=== PATIENT | male | born 1950 | race Caucasian/White ===

== ENCOUNTER 2017-06-28 22:02 | Emergency (ER) | payer MEDICARE, BC, OTHER ==
[2017-06-28 22:36] LABS: BASOPHILS 0.4 % (0-2); EOSINOPHILS 3.2 % (0-7); HEMATOCRIT 40.9 % (42.0-54.0); HEMOGLOBIN 14.1 g/dL (13.5-17.5); IMMATURE GRANULOCYTES 0.4 % (0-5); LYMPHOCYTES 32.4 % (15-50); MCH 31.4 pg (26.0-34.0); MCHC 34.5 g/dL (31.0-37.0); MCV 91.1 fL (80.0-100.0); MEAN PLATELET VOLUME 9.9 fL (7.4-10.4); MONOCYTES 8.8 % (2-11); NEUTROPHILS 54.8 % (40-80); PLATELET COUNT 250 10x3/uL (130-400); RBC 4.49 10x6/uL (4.20-6.10); RDW 12.7 % (11.5-14.5); WBC 11.2 10x3/uL (4.8-10.8)
[2017-06-28 23:00] LABS: ALBUMIN 3.6 g/dL (3.4-5.0); ALKALINE PHOSPHATASE 66 U/L (46-116); ALT (SGPT) 23 U/L (10-68); BILIRUBIN - TOTAL 0.23 mg/dL (0.2-1.3); CALC OSMOLALITY 277 mosm/kg (275-300); CALCIUM 8.5 mg/dL (8.5-10.1); CARBON DIOXIDE 25.5 mmol/L (21.0-32.0); CHLORIDE - SERUM 102 mmol/L (98-107); CKMB 1.5 U/L (0.0-3.6); CREATINE KINASE 81 UL (21-232); CREATININE - SERUM 0.8 mg/dL (0.6-1.3); GLUCOSE 109 mg/dL (74-106); POTASSIUM - SERUM 3.6 mmol/L (3.5-5.1); PROTEIN - SERUM 7.5 g/dL (6.4-8.2); SODIUM 138 mmol/L (136-145); UREA NITROGEN 14 mg/dL (7-18); eGFR NON AFRICAN AMERICAN > 90 mL/min (90-120)
[2017-06-28 23:02] LABS: TROPONIN-I < 0.017 ng/mL (0.000-0.060)
[2017-08-05 07:46] VITALS: BMI 35.2
== END 2017-06-28 23:42 | disposition home or self-care (01) ==
LOC: D.ER 22:02
PROVIDERS: Family Medicine
DX: R07.9 Chest pain, unspecified (principal); I10 Essential (primary) hypertension; F17.200 Nicotine dependence, unspecified, uncomplicated

== ENCOUNTER 2017-07-26 11:17 | Outpatient (CLI) | payer MEDICARE, BC, OTHER ==
[~2017-07-26] VITALS: Ht 177.8 cm; Wt 111.4 kg
--- NOTE | ~2017-07-26 | HEMODYNAMI ---
PATIENT:JACOB THOMAS MEDICAL RECORD: [id number] : 46 [facility] DATE: 07/26/17 Generatedon:07/26/201713:51 Patient name: JACOB THOMAS Patient #: [id number] SSN: : 1950 Date of study: 07/26/2017 Page: Of Hemodynamic Procedure Report Patient Data Patient Demographics Procedure consent was obtained First Name: JACOB Gender: Male Last Name: WILLIAM : 1950 Middle Initial: W Age: 66 year(s) Patient #: [id number] Race: Unknown Additional ID: [id number] Contact details [address]: [address] [place] [address] State: [place] City: [place] Zip code: [address] Past Medical History Allergies: No known allergies Admission Admission Data Admission Date: 07/26/2017 Admission Time: 11:17 Lab Results Lab Result Date: 07/26/2017 Lab Result Time: 11:51 Biochemistry Name Units Result Min Max BUN mg/dl 13 --(--*-)-- 7 18 Creatinine mg/dl 0.8 --(-*--)-- 0.6 1.3 CBC Name Units Result Min Max Hematocrit % 42.1 --(*---)-- 42 54 Hemoglobin g/dl 14.5 --(*---)-- 13.5 17.5 Procedure Procedure Types Cath Procedure Diagnostic Procedure [facility] w/Coronaries Sedation Charges Moderate Sedation up to 15 minutes PCI Procedure Coronary Stent Coronary Stent Initial Procedure Description Procedure Date Procedure Date: 07/26/2017 Procedure Start Time: 13:16 Procedure End Time: 13:45 Procedure Staff Name Function Renard Mobley MD Performing Physician Feliciano Rooney RT Monitor Dena Orr RT Scrub Howard Beard RN Nurse Procedure Data Cath Procedure Fluoroscopy Diagnostic fluoroscopy Total fluoroscopy Time: 6.6 time: 6.6 min min Diagnostic fluoroscopy Total fluoroscopy dose: dose: 1212 mGy 1212 mGy Contrast Material Contrast Material Type Amount (ml) Isovue 300 115 Entry Location Entry Primary Successful Side Size Upsize Upsize Entry Closure Garcia ccessful Closure Location (Fr) 1 (Fr) 2 (Fr) Remarks Device Remarks Radial Right 6 Fr 6 Fr Mechanical artery Short Short Compression Estimated blood loss: 10 ml Diagnostic catheters Device Type Used For End Catheter Placement DIAGNOSTIC Esa 110cm Procedure 5Fr catheter ([id number]) Procedure Complications No complications Procedure Medications Medication Administration Route Dosage Oxygen NC 2 l/min Lidocaine 2% added to field 20 Heparin Flush Bag added to field 2 bags (1000units/500ml NS) 0.9% NaCl I.V. 100 ml/hr Versed I.V. 1 mg Fentanyl I.V. 50 mcg Radial Cocktail I.A. 1 syringe (Verapomil 2mg/Nitro 400mcg/Heparin 1500units) Versed I.V. 1 mg Fentanyl I.V. 50 mcg Versed I.V. 1 mg Heparin Bolus I.V. 98858 units Versed I.V. 1 mg Nitroglycerin IC/IA I.C. 100 mcg Plavix P.O. 600 mg Hemodynamics Rest HGB: 14.5 (g/dl) Heart Rate: 54 (bpm) Pressure Samples Time Site Value (mmHg) Purpose Heart Use Rate(bpm) 13:19 LV 132/4,17 Snapshot 72 13:20 AO 109/63(82) Pullback 63 13:20 LV 127/4,17 Pullback 63 Gradients Valve Time Site 1 Site 2 Mean SEP/DFP Peak To Heart Use (mmHg) (sec/min) Peak Rate (mmHg) (bpm) Aortic 13:20 LV AO 15 7 18 63 127/4,17 109/63(82) Calculations Valve P-P Mean Valve Index Valve Source Name Gradient Area Flow (cm2) Aortic 18 15 18 15 Snapshots Pre Cath Intra NCS Post Cath Vital Signs Time Heart Resp SPO2 etCO2 NIBP (mmHg) Rhythm Pain Sedation Rate (ipm) (%) (mmHg) Status Level (bpm) 13:08:42 54 17 97 36.9 147/78(122) NSR 0 (11) 10(A) , No pain 13:13:30 62 19 99 39.9 146/77(105) NSR 0 (11) 10(A) , No pain 13:18:11 64 18 97 33.9 103/54(87) NSR 0 (11) 9(A) , No pain 13:22:52 55 18 96 32.4 117/69(100) NSR 0 (11) 9(A) , No pain 13:27:32 55 17 95 30.8 110/63(95) NSR 0 (11) 9(A) , No pain 13:32:15 53 16 98 23.3 120/68(85) NSR 0 (11) 9(A) , No pain 13:36:58 58 15 98 34.6 127/69(116) NSR 0 (11) 9(A) , No pain 13:41:40 57 15 100 20.3 114/67(93) NSR 0 (11) 9(A) , No pain 13:46:25 54 12 99 33.1 125/64(108) NSR 0 (11) 10(A) , No pain Medications Time Medication Route Dose Verified Delivered Reason Note s Effectiveness by by 13:11:52 Oxygen NC 2 l/min Renard Buffie used for Itz Beard RN procedure 13:12:01 Lidocaine 2% added 20ml Renard Renard for local to vial Itz Mobley MD anesthetic field 13:12:07 Heparin Flush added 2 bags Renard Renard used for Bag to Itz Mobley MD procedure (1000units/500ml field NS) 13:12:17 0.9% NaCl I.V. 100 Renard Buffie Per physician ml/hr Itz Beard RN 13:12:32 Versed I.V. 1 mg Renard Buffie for sedation Itz Beard RN 13:12:37 Fentanyl I.V. 50 mcg Renard Buffie for sedation Itz Beard RN 13:16:50 Radial Cocktail I.A. 1 Renard Renard for (Verapomil syringe Itz Mobley MD vasodilation 2mg/Nitro 400mcg/Heparin 1500units) 13:16:55 Versed I.V. 1 mg Renard Buffie for sedation Itz Beard RN 13:17:01 Fentanyl I.V. 50 mcg Renard Buffie for sedation Itz Beard RN 13:22:20 Versed I.V. 1 mg Renard Buffie for sedation Itz Beard RN 13:32:32 Heparin Bolus I.V. 11,000 Renard Buffie for veri fied units Itz Beard RN anticoagulation with dr mobley. 13:37:57 Versed I.V. 1 mg Renard Jarodie for sedation Itz Beard RN 13:40:09 Nitroglycerin I.C. 100 mcg Renard Renard for IC/IA Itz min 13:45:04 Plavix P.O. 600 mg Renard Jarodie for Itz Beard RN antiplatelet therapy Procedure Log Time Note 12:51:49 Dena Orr RT(R) sent for patient. Start room use. 12:51:50 Time tracking: Regular hours (M-F 7:00 - 5:00) 12:51:55 Plan of Care:Hemodynamics will remain stable., Cardiac rhythm will remain stable., Comfort level will be maintained., Respiratory function will remain adequate., Patient/ family verbilizes understanding of procedure., Procedure tolerated without complication., Recovers from procedure without complications.. 13:07:33 Patient received from Pre/Post Procedure Room to CCL 1 Alert and oriented. Tansferred to table in Supine position. 13:07:34 Warm blankets applied, and praveen hugger turned on for patient comfort. 13:07:34 Correct patient and procedure confirmed by team. 13:07:36 Signed procedure consent form obtained from patient. 13:07:41 ECG and BP/O2 sat monitors applied to patient. 13:07:42 Vital chart was started 13:08:01 H&P Date Dictated: 07/06/2017 Within 30 days and on chart., H&P Addendum completed by physician on day of procedure. (MUST COMPLETE FOR ALL OUTPATIENTS). 13:08:03 Pre-procedure instructions explained to patient. 13:08:03 Pre-op teaching completed and patient verbalized understanding. 13:08:05 Family in waiting room. 13:08:06 Patient NPO since Midnight. 13:08:10 Patient allergic to No known allergies 13:08:12 Is the patient allergic to Iodine/contrast media? No. 13:08:15 Is patient on blood thinner?No 13:08:17 Patient diabetic? No. 13:08:19 Previous problem with sedation/anesthesia? No ? 13:08:21 Snore? No 13:08:22 Sleep apnea? No 13:08:23 Deviated septum? No 13:08:23 Opens mouth fully? Yes 13:08:24 Sticks out tongue? Yes 13:08:25 Airway obstruction? No ? 13:08:28 Dentures? No ? 13:08:33 Modified Abdi's test Ulnar < 7 seconds 13:08:34 Patient pain scale 0/10 ?. 13:08:45 IV patent on arrival in left forearm with 0.9% NaCl at [facility]. 13:10:13 Lab Result : BUN 13 mg/dl 13:10:13 Lab Result : Creatinine 0.8 mg/dl 13:10:13 Lab Result : Hematocrit 42.1 % 13:10:13 Lab Result : Hemoglobin 14.5 g/dl 13:10:18 Lab results completed and on chart. 13:10:31 Right Radial & Right Groin area was prepped with chlora-prep and draped in sterile fashion 13:10:32 Alarms reviewed by R. N. 13:10:32 Sharps counted by scrub and verified by R.N. 13:10:35 Use device set Radial Dx or PCI 13:10:36 ACIST Syringe (43420) opened to sterile field. 13:10:36 Medline Cath Pack ([id number]) opened to sterile field. 13:10:37 Bag Decanter (2002S) opened to sterile field. 13:10:38 ACIST Hand Control (19115) opened to sterile field. 13:10:38 ACIST Manifold (05738) opened to sterile field. 13:10:39 Tegaderm 4 x 4 (1626W) opened to sterile field. 13:10:41 MBrace Wrist Support ([id number]) opened to sterile field. 13:10:43 DIAGNOSTIC WIRE .035 260cm J wire (602614) opened to sterile field. 13:10:44 SHEATH 6Fr Prelude Radial ([id number]) opened to sterile field. 13:10:48 Physician arrived 13:10:48 --------ALL STOP TIME OUT------ 13:10:49 Final Timeout: patient, procedure, and site verified with staff and physician. All members of the team are in agreement. 13:10:50 Right Radial & Right Groin site verified by team. 13:10:52 Physical assessment completed. ASA score P 2 - A patient with mild systemic disease as per Renard Mobley MD. 13:10:55 Sedation plan: IV Moderate Sedation Medication:Versed, Fentanyl 13:11:45 Baseline sample Acquired. 13:11:48 Rhythm: sinus rhythm 13:11:49 Full Disclosure recording started 13:11:52 Oxygen 2 l/min NC was administered by Howard Beard RN; used for procedure; 13:12:01 Lidocaine 2% 20ml vial added to field was administered by Renard Mobley MD; for local anesthetic; 13:12:07 Heparin Flush Bag (1000units/500ml NS) 2 bags added to field was administered by Renard Mobley MD; used for procedure; 13:12:17 0.9% NaCl 100 ml/hr I.V. was administered by Howard Beard RN; Per physician; 13:12:32 Versed 1 mg I.V. was administered by Howard Beard RN; for sedation; 13:12:37 Fentanyl 50 mcg I.V. was administered by Howard Beard RN; for sedation; 13:16:47 Procedure started. 13:16:50 Radial Cocktail (Verapomil 2mg/Nitro 400mcg/Heparin 1500units) 1 syringe I.A. was administered by Renard Mobley MD; for vasodilation; 13:16:53 Local anesthetic to right radial artery with Lidocaine 2% by Renard Mobley MD.INITIAL ACCESS ONLY 13:16:55 Versed 1 mg I.V. was administered by Howard Beard RN; for sedation; 13:17:00 A 6 Fr Short sheath was inserted into the Right Radial artery 13:17:01 Fentanyl 50 mcg I.V. was administered by Howard Beard RN; for sedation; 13:18:30 A DIAGNOSTIC Esa 110cm 5Fr catheter ([id number]) was advanced over the wire and used for Procedure. 13:19:43 LV gram done using MCMAHON 13:19:45 Injector settings: Ml/sec: 5, Volume: 15, 13:19:48 LV hemodynamics recorded. 13:19:57 EF : 55 % 13:21:12 LCA angiography performed. 13:22:20 Versed 1 mg I.V. was administered by Howard Beard RN; for sedation; 13:23:25 RCA angiography performed. 13:28:44 Catheter removed. 13:28:54 INFLATOR Merit BasixCompak (JJ5299) opened to sterile field. 13:28:55 BMW 300cm [place] 2 J wire ([id number]) opened to sterile field. 13:29:05 TUBING High Pressure Extension Tubing (Itz) (XH9025U) opened to sterile field. 13:29:16 GUIDE 6FR XBLAD 3.5 catheter (19942776) opened to sterile field. 13:29:26 6 Fr xblad 3.5 guide catheter was inserted over the wire 13:32:32 Heparin Bolus 11,000 units I.V. was administered by Howard Beard RN; for anticoagulation; verified with dr mobley. 13:32:51 bmw wire advanced. 13:36:08 Wire advanced across lesion. 13:37:27 Place stent Inflation Number: 1 A INTEGRITY OTW 2.5 X 12 stent ([id number]) was prepped and advanced across the Dist LAD. The stent was deployed at 12 ISA for 0:10 (min:sec). 13:37:57 Versed 1 mg I.V. was administered by Howard Beard RN; for sedation; 13:40:09 Nitroglycerin IC/IA 100 mcg I.C. was administered by Renard Mobley MD; for vasodilation; 13:42:10 Stent catheter was removed intact over wire. 13:42:25 Wire removed. 13:42:26 Guide catheter removed. 13:42:32 TR BAND Standard ([id number]) opened to sterile field. 13:43:00 Sheath removed intact; hemostasis achieved with Mechanical Compression to the Right Radial artery. 13:43:21 Procedure ended.(Physican Out) 13:44:00 TR band inflated with 12cc of air. 13:44:02 Fluoroscopy time 06.60 minutes. 13:44:06 Fluoroscopy dose: 1212 mGy 13:44:06 Flurop Dose total: 1212 13:44:10 Contrast amount:Isovue 300 115ml. 13:44:12 Sharps counted by scrub and verified by R.N. 13:44:13 Insertion/operative site no bleeding no hematoma. 13:44:18 Post right femoral artery:stable, soft, clean and dry 13:44:20 Post Procedure Pulses reassessed and unchanged 13:44:22 Post-procedure physical assessment completed. ASA score P 2 - A patient with mild systemic disease as per Renard Mobley MD. 13:44:24 Post procedure rhythm: unchanged. 13:44:26 Estimated blood loss: 10 ml 13:44:27 Post procedure instruction explained to patient.Patient verbalizes understanding. 13:44:28 Patient needs reinforcement of post procedure teaching. 13:44:33 Procedure type changed to Cath procedure, Diagnostic procedure, LHC, LHC w/Coronaries, Sedation Charges, Moderate Sedation up to 15 minutes, PCI procedure, Coronary Stent, Coronary Stent Initial 13:45:04 Plavix 600 mg P.O. was administered by Howard Beard RN; for antiplatelet therapy; 13:45:46 Procedure and supply charges have been captured, reviewed, submitted and are correct. 13:45:48 Procedure Complication : No complications 13:45:50 Vital chart was stopped 13:45:51 See physician's report for complete and final results. 13:45:52 Report given to Pre/Post Procedure Room. 13:45:54 Patient transfered to Pre/Post Procedure Room with Stretcher. 13:45:56 Procedure ended. 13:45:56 Full Disclosure recording stopped 13:46:04 End room use (Document Last) Intervention Summary Intervention Notes Time ActionType Lesion and Equipment Action# Pressure Duration Attributes Used 13:37:27 Place stent Dist LAD INTEGRITY 1 12 00:10 OTW 2.5 X 12 stent ([id number]) Device Usage Item Name Manufacture Quantity Catalog Number Hospital Part Current M inimal Lot# / Charge Number Stock Stock Serial# Code ACIST Syringe Acist 1 53286 231593 950114 316825 2 0 (93060) Medical Systems Inc Medline Cath Cardinal 1 [id number] 944224 12160 402050 5 Pack Health ([id number]) Bag Decanter Microtek 1 177568 11112 395619 5 () Medical Inc. ACIST Hand Acist 1 81611 037215 763952 308435 5 Control (83703) Medical Systems Inc ACIST Manifold Acist 1 81988 565649 932300 971754 5 (51059) Medical Systems Inc Tegaderm 4 x 4 3M 1 1626W 259732 890240 099008 5 (1626W) MBrace Wrist Advanced 1 140-0250-00 158356 22264 593063 5 Support Vascular ([id number]) Dynamics DIAGNOSTIC WIRE [place] 1 201448 262454 761843 894658 3 0 .035 260cm J wire (633330) SHEATH 6Fr Merit 1 [id number] 968981 696049 375902 5 Prelude Radial Medical ([id number]) DIAGNOSTIC Terumo 1 40-5135 527019 372008 403451 5 Esa 110cm 5Fr catheter (864886) INFLATOR Merit Merit 1 ZN7238 710787 093183 770368 1 5 BasixComazk Medical (WC0035) BMW 300cm [place] 1 [id number] 698983 826486 238011 5 [place] 2 J Vascular wire (9076287U) TUBING High Merit 1 [id number] 142003 59658 519178 1 0 Pressure Medical Extension Tubing (Mobley) ([id number]) GUIDE 6FR XBLAD Cardinal 1 [id number] 264421 164879 931701 1 0 3.5 catheter Health (55318996) INTEGRITY OTW Medtronic 1 [id number] 918917 682798 3 [id number] 2.5 X 12 stent ([id number]) TR BAND Terumo 1 [id number] 110008 948963 432436 4 0 Standard ([id number]) Signature Audit [place] Stage Time Signature Unsigned Intra-Procedure 07/26/2017 Feliciano Rooney 1:51:35 PM RT(R) Signatures Monitor : Feliciano Rooney RT Signature : Date : Time : [id number] [place] [address]
[2017-07-26] MEDS ORDERED: TENORMIN50 MG PO (11:45)
[2017-07-26] MEDS ORDERED: PEPCID20 MG PO (11:46)
[2017-07-26] MEDS ORDERED: HYDROCODON-ACET15 ML PO (11:47)
[2017-07-26] MEDS ORDERED: ZOCOR80 MG PO (11:48)
[2017-07-26 11:54] LABS: BASOPHILS 0.4 % (0-2); EOSINOPHILS 2.2 % (0-7); HEMATOCRIT 42.1 % (42.0-54.0); HEMOGLOBIN 14.5 g/dL (13.5-17.5); IMMATURE GRANULOCYTES 0.2 % (0-5); MCH 31.5 pg (26.0-34.0); MCHC 34.4 g/dL (31.0-37.0); MCV 91.3 fL (80.0-100.0); MEAN PLATELET VOLUME 9.9 fL (7.4-10.4); MONOCYTES 6.7 % (2-11); NEUTROPHILS 56.5 % (40-80); PLATELET COUNT 240 10x3/uL (130-400); RBC 4.61 10x6/uL (4.20-6.10); RDW 12.8 % (11.5-14.5); WBC 9.7 10x3/uL (4.8-10.8)
[2017-07-26 12:05] LABS: CALC OSMOLALITY 275 mosm/kg (275-300); CARBON DIOXIDE 24.8 mmol/L (21.0-32.0); CHLORIDE - SERUM 102 mmol/L (98-107); CREATININE - SERUM 0.8 mg/dL (0.6-1.3); GLUCOSE 93 mg/dL (74-106); POTASSIUM - SERUM 4.2 mmol/L (3.5-5.1); SODIUM 138 mmol/L (136-145); UREA NITROGEN 13 mg/dL (7-18); eGFR NON AFRICAN AMERICAN > 90 mL/min (90-120)
[2017-07-26 12:08] VITALS: BP 138/75; Ht 177.8 cm; Wt 111.4 kg
[2017-07-26] MEDS ORDERED: BAYER CHEWABLE81 MG PO (13:58)
[2017-07-26] MEDS ORDERED: PLAVIX75 MG PO (13:58)
== END 2017-07-26 18:25 | disposition home or self-care (01) ==
LOC: D.CATH 11:17
PROVIDERS: Internal Medicine Cardiovascular Disease
DX: I20.9 Angina pectoris, unspecified (principal); R94.30 Abnormal result of cardiovascular function study, unspecified; R07.9 Chest pain, unspecified; I10 Essential (primary) hypertension; Z01.812 Encounter for preprocedural laboratory examination

== ENCOUNTER 2017-08-05 06:59 | Outpatient (CLI) | payer MEDICARE, BC, OTHER ==
[~2017-08-05] VITALS: Ht 177.8 cm; Wt 111.4 kg
--- NOTE | ~2017-08-05 | HEMODYNAMI ---
PATIENT:JACOB THOMAS MEDICAL RECORD: [id number] : 46 LOCATION:[facility] ADMISSION DATE: 08/05/17 Generatedon:08/05/201710:04 Patient name: JACOB THOMAS Patient #: [id number] : 1950 Date of study: 08/05/2017 Page: Of Hemodynamic Procedure Report Patient Data Patient Demographics Procedure consent was obtained First Name: JACOB Gender: Male Last Name: WILLIAM : 1950 Middle Initial: W Age: 66 year(s) Patient #: [id number] Race: SSN: [id number] Additional ID: [id number] Contact details Address: [address] [place] [address] State: [place] City: [place] Zip code: [address] Past Medical History Allergies: No known allergies Admission Admission Data Admission Date: 08/05/2017 Admission Time: 6:59 Arrival Date: 08/05/2017 Arrival Time: 9:00 Admit Source: Other Insurance Payor: Medicare Height (in.): 70 BSA: 2.29 (m2) Height (cm.): 177.8 BMI: 35.87 (kg/m2) Weight (lbs.): 250 Weight (kg.): 113.4 Lab Results Lab Result Date: 08/05/2017 Lab Result Time: 0:00 Biochemistry Name Units Result Min Max BUN mg/dl 13 --(--*-)-- 7 18 Creatinine mg/dl 0.6 --(*---)-- 0.6 1.3 CBC Name Units Result Min Max Hemoglobin g/dl 14.4 --(*---)-- 13.5 17.5 Procedure Procedure Types Cath Procedure Diagnostic Procedure Sedation Charges Moderate Sedation up to 15 minutes PCI Procedure Coronary Stent Coronary Stent Initial Procedure Description Procedure Date Procedure Date: 08/05/2017 Procedure Start Time: 9:47 Procedure End Time: 10:01 Procedure Staff Name Function Renard Mobley MD Performing Physician Ana Laura CHANEY Monitor Flip Cronin RN Nurse Ana Laura Bernard RT Scrub Procedure Data Cath Procedure Fluoroscopy Diagnostic fluoroscopy Total fluoroscopy Time: 2.8 time: 2.8 min min Diagnostic fluoroscopy Total fluoroscopy dose: 618 dose: 618 mGy mGy Contrast Material Contrast Material Type Amount (ml) Isovue 300 36 Entry Location Entry Primary Successful Side Size Upsize Upsize Entry Closure Garcia ccessful Closure Location (Fr) 1 (Fr) 2 (Fr) Remarks Device Remarks Radial Right 6 Fr Mechanical artery Short Compression Estimated blood loss: 5 ml Procedure Complications No complications Procedure Medications Medication Administration Route Dosage Oxygen etCO2 Nasal cannula 2 l/min Heparin Flush Bag added to field 2 bags (1000units/500ml NS) 0.9% NaCl I.V. 100 ml/hr Radial Cocktail added to field 1 syringe (Verapomil 2mg/Nitro 400mcg/Heparin 1500units) Fentanyl I.V. 50 mcg Versed I.V. 1 mg Radial Cocktail I.A. 1 syringe (Verapomil 2mg/Nitro 400mcg/Heparin 1500units) Fentanyl I.V. 50 mcg Heparin Bolus I.V. 47532 units Hemodynamics Rest BSA: 2.29 (m2) HGB: 14.4 (g/dl) O2 Consumption: Estimated: 252.84 (ml/min) O2 Co nsumption indexed: Estimated:110.41 (ml/min/m) Heart Rate: 55 (bpm) Snapshots Pre Cath Intra NCS Post Cath Vital Signs Time Heart Resp SPO2 etCO2 NIBP (mmHg) Rhythm Pain Sedation Rate (ipm) (%) (mmHg) Status Level (bpm) 9:29:15 54 15 98 0 145/80(127) NSR 0 (11) 10(A) , No pain 9:33:29 53 16 100 35.3 138/78(118) NSR 0 (11) 10(A) , No pain 9:37:47 54 17 100 32.3 135/76(116) NSR 0 (11) 10(A) , No pain 9:43:58 52 17 100 34.5 134/78(116) NSR 0 (11) 10(A) , No pain 9:48:49 62 16 94 35.3 127/80(99) NSR 0 (11) 9(A) , No pain 9:53:01 60 17 89 41.3 108/67(91) NSR 0 (11) 9(A) , No pain 9:57:11 56 17 97 42.8 108/62(80) NSR 0 (11) 9(A) , No pain 10:01:21 51 18 100 41.3 111/62(83) NSR 0 (11) 9(A) , No pain Medications Time Medication Route Dose Verified Delivered Reason Note s Effectiveness by by 9:43:29 Oxygen etCO2 2 l/min Renard Flip Per physician Nasal Itz Cronin RN cannula 9:43:36 Heparin Flush added 2 bags Renard Flip used for Bag to Itz Cronin RN procedure (1000units/500ml field NS) 9:43:44 0.9% NaCl I.V. 100 Renard Flip Per physician ml/hr Itz Cronin RN 9:43:52 Radial Cocktail added 1 Renard Flip used for (Verapomil to syringe Itz Cronin RN procedure 2mg/Nitro field 400mcg/Heparin 1500units) 9:43:59 Fentanyl I.V. 50 mcg Renard Flip for sedation Itz Cronin RN 9:44:05 Versed I.V. 1 mg Renard Flip for sedation Itz Cronin RN 9:49:52 Radial Cocktail I.A. 1 Renard Renard for (Verapomil syringe Itz Mobley MD vasodilation 2mg/Nitro 400mcg/Heparin 1500units) 9:49:58 Fentanyl I.V. 50 mcg Renard Flip for sedation Itz Cronin RN 9:51:29 Heparin Bolus I.V. 35596 Renard Flip for units Itz Cronin RN anticoagulation Procedure Log Time Note 9:06:31 Diagnostic Cath Status : Elective 9:06:53 Ana Laura Bernard RT(R) sent for patient. Start room use. 9:06:54 Time tracking: Regular hours (M-F 7:00 - 5:00) 9:06:59 Plan of Care:Hemodynamics will remain stable., Cardiac rhythm will remain stable., Comfort level will be maintained., Respiratory function will remain adequate., Patient/ family verbilizes understanding of procedure., Procedure tolerated without complication., Recovers from procedure without complications.. 9:18:12 Patient received from Pre/Post Procedure Room to CCL 2 Alert and oriented. Tansferred to table in Supine position. 9:18:13 Warm blankets applied, and praveen hugger turned on for patient comfort. 9:18:14 Correct patient and procedure confirmed by team. 9:18:15 Signed procedure consent form obtained from patient. 9:18:16 ECG and BP/O2 sat monitors applied to patient. 9:28:11 Baseline sample Acquired. 9:28:11 Vital chart was started 9:28:14 Rhythm: sinus rhythm 9:28:17 Full Disclosure recording started 9:28:21 H&P Date Dictated: 08/05/2017 Within 30 days and on chart., H&P Addendum completed by physician on day of procedure. (MUST COMPLETE FOR ALL OUTPATIENTS). 9:28:22 Pre-procedure instructions explained to patient. 9:28:22 Pre-op teaching completed and patient verbalized understanding. 9:28:24 Family in patients room. 9:28:25 Patient NPO since Midnight. 9:28:27 Is the patient allergic to Iodine/contrast media? No. 9:28:28 Was the patient premedicated? No 9:28:29 Is patient on blood thinner?Yes 9:28:32 ACC The patient was administered the following blood thiners within the last 24 hours: ACCPlavix 9:28:34 Patient diabetic? No. 9:28:37 Previous problem with sedation/anesthesia? No ? 9:28:38 Snore? Yes 9:28:40 Sleep apnea? No 9:28:40 Deviated septum? No 9:28:41 Opens mouth fully? Yes 9:28:42 Sticks out tongue? Yes 9:28:44 Airway obstruction? No ? 9:28:46 Dentures? No ? 9:28:49 Pre procedure: right dorsailis pedis pulse 2+ Normal; easily identifiable; not easily obliterated 9:28:52 Pre procedure: left dorsailis pedis pulse 2+ Normal; easily identifiable; not easily obliterated 9:29:00 Patient pain scale 0/10 ?. 9:29:04 Modified Abdi's test Radial < 7 seconds 9:29:10 IV patent on arrival in left forearm with 0.9% NaCl at KVO. 9:29:13 Lab results completed and on chart. 9:29:16 Right Radial & Right Groin area was prepped with chlora-prep and draped in sterile fashion 9::17 Alarms reviewed by RPedro N. 9::17 Sharps counted by scrub and verified by RPedroN. 9:34:58 Physician arrived 9:34:58 --------ALL STOP TIME OUT------ ::58 Final Timeout: patient, procedure, and site verified with staff and physician. All members of the team are in agreement. 9:35:01 Right Radial & Right Groin site verified by team. 9:35:03 Physical assessment completed. ASA score P 2 - A patient with mild systemic disease as per Renard Mobley MD. 9:35:08 Sedation plan: IV Moderate Sedation Medication:Versed, Fentanyl 9:40:19 Admit Source: Other 9:40:23 Arrival Date: 08/05/2017 9:00:00 AM 9:40:31 Insurance Payor : Medicare 9:40:56 Patient Height : 70 inches 9:41:01 Patient Weight : 250 lbs 9:43:29 Oxygen 2 l/min etCO2 Nasal cannula was administered by Flip Cronin RN; Per physician; 9:43:36 Heparin Flush Bag (1000units/500ml NS) 2 bags added to field was administered by Flip Crnoin RN; used for procedure; 9:43:44 0.9% NaCl 100 ml/hr I.V. was administered by Flip Cronin RN; Per physician; 9:43:52 Radial Cocktail (Verapomil 2mg/Nitro 400mcg/Heparin 1500units) 1 syringe added to field was administered by Flip Cronin RN; used for procedure; 9:43:59 Fentanyl 50 mcg I.V. was administered by Flip Cronin RN; for sedation; 9:44:05 Versed 1 mg I.V. was administered by Flip Cronin RN; for sedation; 9:47:24 Lab Result : Hemoglobin 14.4 g/dl 9:47:24 Lab Result : Creatinine 0.6 mg/dl 9:47:24 Lab Result : BUN 13 mg/dl 9:47:30 Procedure started. 9:47:34 Local anesthetic to right radial artery with Lidocaine 2% by Renard Mobley MD.INITIAL ACCESS ONLY 9:47:43 A 6 Fr Short sheath was inserted into the Right Radial artery 9:49:52 Radial Cocktail (Verapomil 2mg/Nitro 400mcg/Heparin 1500units) 1 syringe I.A. was administered by Renard Mobley MD; for vasodilation; 9:49:58 Fentanyl 50 mcg I.V. was administered by Flip Cronin RN; for sedation; 9:50:19 6 Fr xblad 3.5 guide catheter was inserted over the wire 9:50:27 bmw wire advanced. 9:50:38 Use device set Radial Dx or PCI 9:50:40 ACIST Syringe (06781) opened to sterile field. 9:50:40 Medline Cath Pack ([id number]) opened to sterile field. 9:50:41 Bag Decanter (2002S) opened to sterile field. 9:50:41 DIAGNOSTIC WIRE .035 260cm J wire (716700) opened to sterile field. 9:50:42 ACIST Hand Control (79736) opened to sterile field. 9:50:43 ACIST Manifold (62134) opened to sterile field. 9:50:44 Tegaderm 4 x 4 (1626W) opened to sterile field. 9:50:44 MBrace Wrist Support ([id number]) opened to sterile field. 9:50:45 NEEDLE Cook 21G 4cm Radial (P74816) opened to sterile field. 9:50:47 SHEATH 6Fr Prelude Radial ([id number]) opened to sterile field. 9:51:01 TUBING High Pressure Extension Tubing (Itz) (XP0895E) opened to sterile field. 9:51:02 BMW 300cm [place] 2 J wire (2035029S) opened to sterile field. 9:51:03 INFLATOR Merit BasixCompak (VB8240) opened to sterile field. 9:51:18 GUIDE 6FR XBLAD 3.5 catheter (43794289) opened to sterile field. 9:51:29 Heparin Bolus 17228 units I.V. was administered by Flip Cronin RN; for anticoagulation; 9:52:41 LCA angiography performed. 9:52:44 Injector settings: Ml/sec: 3, Volume: 6, 9:53:44 Wire advanced across lesion. 9:56:34 Place stent Inflation Number: 1 A INTEGRITY OTW 3.0 X 12 stent ([id number]) was prepped and advanced across the Mid CX. The stent was deployed at 14 ISA for 0:10 (min:sec). 9:57:49 Stent catheter was removed intact over wire. 9:57:50 Wire removed. 9:57:50 Guide catheter removed. 9:58:20 Sheath removed intact; hemostasis achieved with Mechanical Compression to the Right Radial artery. 9:58:24 TR BAND Standard ([id number]) opened to sterile field. 9:58:28 Procedure ended.(Physican Out) 9:59:03 Fluoroscopy time 02.80 minutes. 9:59:08 Fluoroscopy dose: 618 mGy 9:59:08 Flurop Dose total: 618 9:59:12 Contrast amount:Isovue 300 36ml. 9:59:14 Sharps counted by scrub and verified by R.N. 9:59:17 TR band inflated with 10cc of air. 9:59:19 Insertion/operative site no bleeding no hematoma. 9:59:22 Post right radial artery:stable 9:59:24 Post Procedure Pulses reassessed and unchanged 9:59:26 Post procedure rhythm: unchanged. 9:59:40 Estimated blood loss: 5 ml 9:59:42 Post procedure instruction explained to patient.Patient verbalizes understanding. 9:59:42 Patient needs reinforcement of post procedure teaching. 10:00:58 Procedure type changed to Cath procedure, Diagnostic procedure, Sedation Charges, Moderate Sedation up to 15 minutes, PCI procedure, Coronary Stent, Coronary Stent Initial 10:01:02 Procedure and supply charges have been captured, reviewed, submitted and are correct. 10:01:06 Procedure Complication : No complications 10:01:08 Vital chart was stopped 10:01:08 See physician's report for complete and final results. 10:01:12 Report given to Pre/Post Procedure Room. 10:01:14 Patient transfered to Pre/Post Procedure Room with Stretcher. 10::17 Procedure ended. ::17 Full Disclosure recording stopped 10::29 ACC-PCI Only Patient was given prescriptions, or instructed by Renard Mobley MD to start/continue the following medications upon discharge: Plavix 10:01:31 End room use (Document Last) Intervention Summary Intervention Notes Time ActionType Lesion and Equipment Action# Pressure Duration Attributes Used 9:56:34 Place stent Mid CX INTEGRITY 1 14 00:10 OTW 3.0 X 12 stent ([id number]) Device Usage Item Name Manufacture Quantity Catalog Number Hospital Part Current M inimal Lot# / Charge Number Stock Stock Serial# Code ACIST Syringe Acist 1 77858 278507 196361 195470 2 0 (09539) Medical Systems Inc Medline Cath Cardinal 1 [id number] 696267 85059 444540 5 Pack Health ([id number]) Bag Decanter Microtek 1 2001S 301171 60559 324573 5 () Medical Inc. DIAGNOSTIC WIRE [place] 1 937890 922785 127374 334275 3 0 .035 260cm J wire (487894) ACIST Hand Acist 1 89899 348366 566856 120051 5 Control (82976) Medical Systems Inc ACIST Manifold Acist 1 17218 063313 830552 766956 5 (11976) Medical Systems Inc Tegaderm 4 x 4 3M 1 1626W 729908 048750 336804 5 (1626W) MBrace Wrist Advanced 1 140-0250-00 093967 14953 308454 5 Support Vascular (275929499) Dynamics NEEDLE Cook 21G Cook Medical 1 J11597 030627 138926 704694 5 4cm Radial (Y80264) SHEATH 6Fr Merit 1 [id number] 602385 918773 599462 5 Prelude Radial Medical ([id number]) TUBING High Merit 1 [id number] 624267 58501 938146 1 0 Pressure Medical Extension Tubing (Mobley) (NQ2223G) BMW 300cm [place] 1 [id number] 993853 857949 036591 5 [place] 2 J Vascular wire (9966647A) INFLATOR Merit Merit 1 MK8905 670583 189547 638422 1 5 BasixFloored Medical (WA3148) GUIDE 6FR XBLAD Cardinal 1 [id number] 150090 021858 776230 1 0 3.5 catheter Health (64120481) INTEGRITY OTW Medtronic 1 [id number] 003395 471657 1 [id number] 3.0 X 12 stent ([id number]) TR BAND Terumo 1 [id number] 396487 255270 163426 4 0 Standard ([id number]) Signature Audit [place] Stage Time Signature Unsigned Intra-Procedure 08/05/2017 Ana Laura Bernard 10:04:05 AM RT(R) Signatures Monitor : Ana Laura Bernard RT Signature : Date : Time : [place] [id number] [place] [address]
[~2017-08-05 06:59] MED LIST: BAYER CHEWABLE81 MG PO; HYDROCODON-ACET15 ML PO; PEPCID20 MG PO; PLAVIX75 MG PO; TENORMIN50 MG PO; ZOCOR80 MG PO
[2017-08-05 07:46] VITALS: BP 131/69; Ht 177.8 cm; Wt 111.4 kg
[2017-08-05 08:30] LABS: BASOPHILS 0.5 % (0-2); EOSINOPHILS 2.8 % (0-7); HEMATOCRIT 42.1 % (42.0-54.0); HEMOGLOBIN 14.4 g/dL (13.5-17.5); IMMATURE GRANULOCYTES 0.2 % (0-5); LYMPHOCYTES 28.3 % (15-50); MCHC 34.2 g/dL (31.0-37.0); MCV 90.5 fL (80.0-100.0); MEAN PLATELET VOLUME 10.2 fL (7.4-10.4); MONOCYTES 8.8 % (2-11); NEUTROPHILS 59.4 % (40-80); PLATELET COUNT 253 10x3/uL (130-400); RBC 4.65 10x6/uL (4.20-6.10); RDW 12.8 % (11.5-14.5); WBC 9.3 10x3/uL (4.8-10.8)
[2017-08-05 08:43] LABS: CALC OSMOLALITY 273 mosm/kg (275-300); CALCIUM 9.1 mg/dL (8.5-10.1); CARBON DIOXIDE 24.2 mmol/L (21.0-32.0); CHLORIDE - SERUM 103 mmol/L (98-107); CREATININE - SERUM 0.6 mg/dL (0.6-1.3); GLUCOSE 103 mg/dL (74-106); POTASSIUM - SERUM 4.8 mmol/L (3.5-5.1); SODIUM 137 mmol/L (136-145); UREA NITROGEN 13 mg/dL (7-18); eGFR NON AFRICAN AMERICAN > 90 mL/min (90-120)
== END 2017-08-05 14:30 | disposition home or self-care (01) ==
LOC: D.CATH 06:59
PROVIDERS: Internal Medicine Cardiovascular Disease
DX: I25.119 Atherosclerotic heart disease of native coronary artery with unspecified angina pectoris (principal); I10 Essential (primary) hypertension; R07.9 Chest pain, unspecified; Z01.812 Encounter for preprocedural laboratory examination

== ENCOUNTER → 2019-10-16 12:14 | Outpatient (CLI) | payer MEDICARE, BC, OTHER ==
[2017-08-05 07:46] VITALS: BMI 35.2
== END | disposition home or self-care (01) ==
LOC: D.HCCECHO 12:14
PROVIDERS: ATTEND Internal Medicine Cardiovascular Disease
DX: I25.10 Atherosclerotic heart disease of native coronary artery without angina pectoris (principal)

== ENCOUNTER 2020-07-14 10:33 | Observation (INO) | payer MEDICARE, OTHER ==
[~2020-07-14] VITALS: Ht 177.8 cm; Wt 110.0 kg
[2020-07-14] VITALS (7 sets, daily range): BP systolic 125–155; BP diastolic 70–84; Ht 177.8 cm; Wt 110.0 kg
[2020-07-14 11:15] LABS: BASOPHILS 0.5 % (0-2); EOSINOPHILS 2.1 % (0-7); HEMATOCRIT 43.9 % (42.0-54.0); HEMOGLOBIN 14.8 g/dL (13.5-17.5); IMMATURE GRANULOCYTES 0.2 % (0-5); LYMPHOCYTE ABS# 2.49 10x3/uL (1.32-3.57); LYMPHOCYTES 28.1 % (15-50); MCH 30.4 pg (26.0-34.0); MCHC 33.7 g/dL (31.0-37.0); MCV 90.1 fL (80.0-100.0); MEAN PLATELET VOLUME 9.7 fL (7.4-10.4); MONOCYTES 10.4 % (2-11); NEUTROPHILS 58.7 % (40-80); PLATELET COUNT 261 10x3/uL (130-400); RBC 4.87 10x6/uL (4.20-6.10); WBC 8.9 10x3/uL (4.8-10.8)
[2020-07-14 11:24] LABS: APTT 34.9 SECONDS (22.8-39.4); INR 1.09 (0.85-1.17); PROTIME 13.1 SECONDS (11.6-15.0)
[2020-07-14 11:36] LABS: CALC OSMOLALITY 275 mosm/kg (275-300); CALCIUM 8.8 mg/dL (8.5-10.1); CARBON DIOXIDE 28.6 mmol/L (21.0-32.0); CHLORIDE - SERUM 102 mmol/L (98-107); CREATININE - SERUM 0.7 mg/dL (0.6-1.3); GLUCOSE 94 mg/dL (74-106); POTASSIUM - SERUM 4.3 mmol/L (3.5-5.1); SODIUM 138 mmol/L (136-145); UREA NITROGEN 12 mg/dL (7-18); eGFR NON AFRICAN AMERICAN > 90 mL/min (90-120)
[2020-07-14 11:53] LABS: ALBUMIN 3.6 g/dL (3.4-5.0); ALKALINE PHOSPHATASE 86 U/L (30-120); ALT (SGPT) 22 U/L (10-68); BILIRUBIN - TOTAL 0.25 mg/dL (0.2-1.3); CKMB 0.9 U/L (0.0-3.6); CREATINE KINASE 67 UL (21-232); MAGNESIUM - SERUM 2.1 mg/dL (1.8-2.4); PROTEIN - SERUM 7.4 g/dL (6.4-8.2)
[2020-07-14 11:54] LABS: TROPONIN-I < 0.017 ng/mL (0.000-0.060)
--- NOTE | 2020-07-14 15:11 | NUR ---
pt arived via whEELCHAIR TO ROOM. ALERT AND ORIETNED, AMBULATES UNASSITED WITHOUT NOTED/REPORTED COMPLICAITONS. DENIES CHEST PAIN AT THIS TIME. AT BEDSIDE.
--- NOTE | 2020-07-14 16:33 | NUR ---
PT ALERT AND ORIENTED, SITTING IN RECLINER BESIDE CHAIR. AT BEDSIDE. NO COMPLAINTS OR CONCERNS AT THIS TIME. COMPLETED FIRST PART OF STRESS TEST.
[2020-07-14 17:53] LABS: CKMB 1.1 U/L (0.0-3.6); CREATINE KINASE 64 UL (21-232)
[2020-07-14 17:55] LABS: TROPONIN-I < 0.017 ng/mL (0.000-0.060)
[2020-07-15 02:07] VITALS: BP 130/73
[2020-07-15 05:16] LABS: BASOPHILS 0.3 % (0-2); EOSINOPHILS 2.2 % (0-7); HEMOGLOBIN 14.5 g/dL (13.5-17.5); IMMATURE GRANULOCYTES 0.2 % (0-5); LYMPHOCYTE ABS# 2.97 10x3/uL (1.32-3.57); LYMPHOCYTES 29.3 % (15-50); MCV 90.9 fL (80.0-100.0); MEAN PLATELET VOLUME 9.8 fL (7.4-10.4); MONOCYTES 8.5 % (2-11); NEUTROPHIL ABS# 6.04 10x3/uL (1.78-5.38); NEUTROPHILS 59.5 % (40-80); PLATELET COUNT 270 10x3/uL (130-400); RBC 4.84 10x6/uL (4.20-6.10); WBC 10.1 10x3/uL (4.8-10.8)
[2020-07-15 05:59] LABS: ALBUMIN 3.5 g/dL (3.4-5.0); ALKALINE PHOSPHATASE 82 U/L (30-120); ALT (SGPT) 22 U/L (10-68); BILIRUBIN - TOTAL 0.39 mg/dL (0.2-1.3); CALC OSMOLALITY 275 mosm/kg (275-300); CALCIUM 8.9 mg/dL (8.5-10.1); CHLORIDE - SERUM 102 mmol/L (98-107); CREATINE KINASE 57 UL (21-232); CREATININE - SERUM 0.9 mg/dL (0.6-1.3); GLUCOSE 103 mg/dL (74-106); MAGNESIUM - SERUM 2.1 mg/dL (1.8-2.4); PHOSPHOROUS 3.2 mg/dL (2.5-4.9); POTASSIUM - SERUM 3.9 mmol/L (3.5-5.1); PROTEIN - SERUM 7.2 g/dL (6.4-8.2); SODIUM 138 mmol/L (136-145); TROPONIN-I < 0.017 ng/mL (0.000-0.060); UREA NITROGEN 13 mg/dL (7-18); eGFR NON AFRICAN AMERICAN 88 mL/min (90-120)
[2020-07-15 06:07] VITALS: BP 138/70
[2020-07-15 08:17] VITALS: BP 153/77
--- NOTE | 2020-07-15 12:43 | NUR ---
IV THERAPY REMOVED FROM LEFT FOREARM WITH TIP INTACT. DISCHARGE INSTRUCTIONS GIVEN. PT VERBALIZED UNDERSTANDING. DIL LUCIO HERE TO TAKE HIM HOME AND TO EAT LUNCH. REFUSED WHEELCHAIR.
--- NOTE | 2020-07-16 15:27 | CN ---
PATIENT NAME:JACOB THOMAS MEDICAL RECORD: [id number] : 46 LOCATION:. D.2109 ADMIT DATE: 07/14/20 ACCOUNT: [id number] CONSULTING PHYSICIAN: DOUGLAS NORTH MD REFERRING PHYSICIAN: SAVANNAH WHEELER MD DATE OF CONSULTATION: 07/14/2020 HISTORY OF PRESENT ILLNESS: The patient is a 69-year-old male with history of atherosclerotic heart disease, history of PCI/stent, hypertension, hyperlipidemia, who presented to the Emergency Room with complaints of chest pain/left arm pain and discomfort. The patient denies PND or orthopnea. He denies exertional component to his symptoms. I asked to evaluate from a cardiovascular standpoint. PAST MEDICAL HISTORY: Significant for; 1. Chest pain/discomfort -- atypical feature/angina pectoris. 2. History of atherosclerotic heart disease. 3. History of hypertension. 4. History of PCI/stents. 5. History of hyperlipidemia. 6. Mild obesity. MEDICATIONS (OUTPATIENT): 1. Atenolol 50 mg daily. 2. Pepcid 20 mg daily. 3. Zocor 80 mg daily. 4. Aspirin 81 mg daily. PHYSICAL EXAMINATION: GENERAL: Pleasant, moderately obese male, sitting in no apparent distress. VITAL SIGNS: Blood pressure 149/74, pulse 50s (regular). HEENT: Sclerae are clear; conjunctivae pink. NECK: Supple; no appreciate JVD. HEART: Regular rhythm and rate. LUNGS: Clear. ABDOMEN: Benign. EXTREMITIES: Negative for edema. NEUROLOGIC: Nonfocal. LABORATORY DATA: Sodium 138, potassium 4.3, BUN 12, creatinine 0.7, troponin 0.017 (negative). White blood cell count 8.9, hemoglobin and hematocrit 14.8 and 43.9, platelet count is 261. DIAGNOSTIC DATA: ECG -- sinus bradycardia, otherwise unremarkable. ASSESSMENT: 1. Chest pain/discomfort/arm pain -- atypical feature -- angina pectoris. 2. Atherosclerotic heart disease. 3. History of PCI/stents. 4. Hypertension. 5. Hyperlipidemia. 6. Mild obesity. PLAN: Continue current medical management at this time. Recommended restarting CONSULT REPORT [id number] JACOB THOMAS the patient's home medication regimen. The patient will be scheduled for echocardiogram to assess LV function and valvular status. I will also schedule the patient for a Lexiscan nuclear Cardiolite to assess for assess for underlying myocardial ischemia. Further recommendation as clinically indicated. Thank you for allowing me to participate in the care of this patient. TRANSINT:[id number] Voice Confirmation ID: [id number] DOCUMENT ID: [id number] DOUGLAS NORTH MD at 1527 CC: [id number] DICTATION DATE: 07/14/20 1508 [place] SEWER: 07/14/20 192 DIS IN 07/15/20 [facility] [address] [place] [address]
== END 2020-07-15 12:43 | disposition home or self-care (01) ==
LOC: D.ER 10:33 → D.M2 14:33 → OBSVTIME 14:34 → D.M2 07-15 12:43
PROVIDERS: Family Medicine; ADMIT Emergency Medicine; ATTEND Emergency Medicine
DX: R07.9 Chest pain, unspecified (principal); I10 Essential (primary) hypertension; E78.5 Hyperlipidemia, unspecified; E66.9 Obesity, unspecified; I25.10 Atherosclerotic heart disease of native coronary artery without angina pectoris; Z68.34 Body mass index [BMI] 34.0-34.9, adult